=== PATIENT | female | born 1955 | race Caucasian/White ===

== ENCOUNTER 2016-11-20 14:32 | Emergency (ER) | payer BC ==
[~2016-11-20 14:32] MED LIST: ARIMIDEX1 MG; WELLBUTRIN SR150 MG
[2016-11-20] MEDS ORDERED: CYMBALTA30 M1 PO (15:14)
[2016-11-20] MEDS ORDERED: ROSUVASTATIN CA10 MG PO (15:15)
[2016-11-20] MEDS ORDERED: NORCO 5-325 TA1 EACH PO (17:07)
== END 2016-11-20 17:21 ==
LOC: EDMED 14:32
DX: S16.1XXA Strain of muscle, fascia and tendon at neck level, initial encounter (principal); X58.XXXA Exposure to other specified factors, initial encounter; E78.5 Hyperlipidemia, unspecified; Z85.3 Personal history of malignant neoplasm of breast; F17.210 Nicotine dependence, cigarettes, uncomplicated
CPT/HCPCS: J2270